=== PATIENT | female | born 1985 | race Caucasian/White ===

== ENCOUNTER 2018-01-23 12:40 | Emergency (ER) | payer OTHER ==
[2018-01-23 12:50] VITALS: TEMP 98.2; BMI 27.3
--- NOTE | 2018-01-23 13:49 | PDOC ---
History of Present Illness - General Chief Complaint: Palpitations Stated Complaint: TACHYCARDIA (PCP SENT) History Source: Patient Exam Limitations: No Limitations - History of Present Illness Initial Comments: 01/23/18 13:25 32 YOF with h/o heart murmur recently diagnosed by echo, distant h/o asthma, and current left tooth pain, who was instructed by her PMD Jenaro Garvin to come into the ED for a 5-10 minute episode of rapid palpitations, SOB, lightheadedness, and mild substernal chest pain, which occurred this morning at 11 am while she was at work but doing nothing particularly stressful or physically demanding. 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 She notes resolution of the symptoms without further intervention, and now feels well. She denies recent f/c/n/v/d/c, LMP was in the past week, no leg swelling/pain, no OCP or hormone use, no recent surgery, but recently had a road trip to and from [place] (about a 4.[address] with vacation inbetween the trips). No family h/o blood clotting disorders, sudden unexplained cardiac in family members, or other symptoms. States she has been eating and drinking well, denies any tobacco, alcohol, or drug use , denies any increase in her stress level lately Past History - Past Medical History Allergies/Adverse Reactions: Allergies Allergy/AdvReac Type Severity Reaction Status Date / Time clindamycin Allergy Verified 01/23/18 12:50 Penicillins Allergy Verified 01/23/18 12:50 shellfish derived Allergy Verified 01/23/18 12:50 Home Medications: Ambulatory Orders NK [No Known Home Medication] 01/23/18 Cardiac Disorders: (MUR MUR) COPD: No - Suicide/Smoking/Psychosocial Hx Smoking History: Never smoked Hx Alcohol Use: No Drug/Substance Use Hx: No Review of Systems - Review of Systems Able to Perform ROS?: Yes Constitutional: No: Chills, Fever, Unexplained wgt Loss HEENTM: No: Nose Congestion, Throat Pain Respiratory: No: Cough, Shortness of Breath Cardiac (ROS): No: Chest Pain, Palpitations ABD/GI: No: Constipated, Diarrhea, Nausea, Vomiting : No: Burning, Dysuria Musculoskeletal: No: Back Pain, Neck Pain Integumentary: No: Bruising, Rash Neurological: No: Headache, Numbness, Tingling, Weakness, Dizziness Endocrine: No: Unexplained Weight Gain, Unexplained Weight Loss *Physical Exam - Vital Signs Last Vital Signs Temp Pulse Resp BP Pulse Ox 98.2 F 83 18 112/75 100 01/23/18 12:47 01/23/18 16:31 01/23/18 16:31 01/23/18 16:31 01/23/18 16:31 - Physical Exam General Appearance: Yes: Nourished, Other (alert, oriented, well appearing adult female in no distress, answers questions appropriately). No: Apparent Distress HEENT: positive: EOMI, YANETH, Normal Voice, Hearing Grossly Normal. negative: Scleral Icterus (R), Scleral Icterus (L), Nasal Congestion Neck: positive: Trachea midline, Supple. negative: Tender, Rigid Respiratory/Chest: positive: Lungs Clear, Decreased Breath Sounds. negative: Respiratory Distress, Crackles, Rhonchi, Stridor, Wheezing Cardiovascular: positive: Regular Rhythm, Regular Rate, S1, S2. negative: Edema , JVD, Murmur Gastrointestinal/Abdominal: positive: Normal Bowel Sounds, Soft. negative: Tender, Organomegaly, Pulsatile Mass, Guarding Musculoskeletal: positive: Normal Inspection. negative: Decreased Range of Motion, Vertebral Tenderness Extremity: positive: Normal Capillary Refill, Normal Inspection, Normal Range of Motion. negative: Tender, Cyanosis Integumentary: positive: Normal Color, Dry, Warm. negative: Erythema, Rash, Bruising Neurologic: positive: city assessor II-XII NML intact, Fully Oriented, Alert, Normal Mood/ Affect, Normal Response, Motor Strength 5/5 Heart Score/ECG Review - History History: Slightly suspicious - Electrocardiogram EKG: Normal - Age Age: </= 45 - Risk Factors Based on the list above the patient has:: No risk factors known - Troponin Troponin: </= normal limit - Score Heart Score - Total: 0 - [place] Comment: Sinus rhythm rate 92 with normal axis and intervals and no ST-T changes ED Treatment Course - LABORATORY CBC & Chemistry Diagram: 01/23/18 14:41 01/23/18 14:41 - ADDITIONAL ORDERS Additional order review: 01/23/18 14:33 Urine Culture - Final Urine - Urine Clean Catch NO GROWTH OBTAINED 01/23/18 14:41 RBC 4.48 MCV 88.6 MCHC 34.2 RDW 12.7 MPV 8.6 Neutrophils % 71.8 Lymphocytes % 21.6 Monocytes % 4.9 Eosinophils % 0.7 Basophils % 1.0 - RADIOLOGY Radiology Studies Ordered: Category Date Time Status CHEST X-RAY PORTABLE* [RAD] Stat Radiology 01/23/18 13:56 Completed - Medications Given in the ED: ED Medications Discontinued Medications Generic Name Dose Route Start Last Admin Trade Name Freq PRN Reason Stop Dose Admin Sodium Chloride 1,000 ml 01/23/18 14:58 01/23/18 15:42 Normal Saline - IV 01/23/18 14:59 1,000 ml ONCE ONE Administration Medical Decision Making - Medical Decision Making Adult Pt p/w chest pain. Initial Vital Signs Temp Pulse Resp BP Pulse Ox 98.2 F 87 18 123/75 98 01/23/18 12:47 01/23/18 12:47 01/23/18 12:47 01/23/18 12:47 01/23/18 12:47 Exam: As noted in Physical Exam section. DDX IBNLT: Arrhythmia (i.e. SVT, AFIB, etc), MVP, ACS, pericarditis, tamponade, aortic dissection, AAA, PTX, PE, esophageal tear, esophagitis (e.g. pill, infectious), esophageal stricture, gastritis, PUD, pancreatitis, cholecystitis, cholangitis, colitis, bowel perforation, PNA/bronchitis, pleurisy, pleuritis, pulmonary HTN, musculoskeletal, panic/anxiety, etc. W/U ordered: CBCD CMP Mg Phos Troponin Coags UA UCx EKG CXR. TX ordered: monitor, O2 via NC if needed Patient rules out with PERC criteria; low c/f PE and D-dimer not indicated. EKG: Reviewed; results as noted in ECG Review section. CXR: Nothing acute. Laboratory Tests 01/23/18 01/23/18 01/23/18 14:33 14:41 14:41 WBC 7.3 RBC 4.48 Hgb 13.6 Hct 39.7 MCV 88.6 MCH 30.3 MCHC 34.2 RDW 12.7 Plt Count 285 MPV 8.6 Absolute Neuts (auto) 5.3 Neutrophils % 71.8 Lymphocytes % 21.6 Monocytes % 4.9 Eosinophils % 0.7 Basophils % 1.0 Nucleated RBC % 0 Sodium 135 L Potassium 3.9 Chloride 108 H Carbon Dioxide 28 Anion Gap -1 L BUN 13 Creatinine 0.6 Creat Clearance w eGFR > 60 Random Glucose 89 Calcium 8.9 Phosphorus 3.9 Magnesium 1.9 Total Bilirubin 0.2 AST 20 ALT 32 Alkaline Phosphatase 50 Troponin I < 0.02 Total Protein 6.9 Albumin 3.7 Urine Color Straw Urine Appearance Clear Urine pH 7.0 Ur Specific [place] 1.008 Urine Protein Negative Urine Glucose (UA) Negative Urine Ketones Negative Urine Blood Negative Urine Nitrite Negative Urine Bilirubin Negative Urine Urobilinogen Negative Ur Leukocyte Esterase Negative Urine HCG, Qual Negative Reassessment: Feels well, repeat exam benign and unchanged. 01/23/18 15:49 Dr. Ramirez spoke with Dr. Garvin; in agreement patient can be discharged with plan to f/u with cardiology. Vital Signs Temperature 98.2 F 01/23/18 12:47 Pulse Rate 83 01/23/18 16:31 Respiratory Rate 18 01/23/18 16:31 Blood Pressure 112/75 01/23/18 16:31 O2 Sat by Pulse Oximetry (%) 100 01/23/18 16:31 No new abnormal rhythms have been observed on the ekg monitor tech. On last reassessment VS are stable, Pts pain is resolved, and exam is benign. The Pts HEART score indicates they are low risk and do not require admission currently. The Pt is appropriate for discharge with close outpatient follow up. Referral info given for Dr. Amato and pt will f/u [facility] (call this afternoon or tomorrow morning). They are comfortable with this plan and will follow up with their PCP in 1-3 days. Specific return precautions are discussed and they will come back to the ER if necessary. *DC/Admit/Observation/Transfer Diagnosis at time of Disposition: Palpitations Chest pain Qualifiers: Chest pain type: unspecified Qualified Code(s): R07.9 - Chest pain, unspecified - Discharge Dispostion Disposition: HOME Condition at time of disposition: Stable Decision to Admit order: No - Referrals Referrals: Jenaro Garvin MD [Primary Care Provider] - Ryan Amato MD [Staff Physician] - - Patient Instructions Printed Discharge Instructions: DI for Palpitations Additional Instructions: You were seen in the ER for palpitations, shortness of breath, and chest pain. We did lab work on your blood and urine, an electrocardiogram, and a chest x-ray , and we did not find any concerning abnormalities. After our assessment, we do not believe you are having a medical emergency at this time, and we believe you are safe to go home. Take over the counter pain medications for your pain, as instructed on the medication label. Please follow up with your regular PCP doctor in 1-3 days, and with our microarray specialist (Dr. Amato, for whom we are giving you referral info in this packet). Call their clinic as soon as possible , tell them you were seen in the ER, and tell them you need an appointment. If you have any new or worsening symptoms, especially worsening chest pain, jaw pain, shoulder/arm pain, shortness of breath, sweats, nausea, loss of consciousness, palpitations, or other symptoms, please come back to the ER at any time (24 hours a day). If you are having severe or life threatening symptoms , or symptoms that make it unsafe to drive or have someone drive you, please call 911. - Post Discharge Activity
--- NOTE | 2018-01-23 14:42 | PDOC ---
Attending Attestation - HPI HPI: 01/23/18 15:00 The patient is a 32 year old female, with a significant PMH of heart murmur, asthma who presents to the emergency department with an episode of palpitations , shortness of breath, lightheadedness and substernal chest pain beginning at 11am this morning. The patient states the episode lasted for approx 5-10 minutes before resolving on its own. 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 The patient states her LMP was last week. She denies any recent leg swelling or pain. Denies any recent surgery. Denies any family history of blood clots. Denies any hormone use or OCP. The patient states she had a recent road trip to [place] via car approx 4.5 hours. Denies fever, chills, nausea, vomit, diarrhea and constipation. Denies dysuria, frequency, urgency and hematuria. Allergies: clindamycin, penicillin, shellfish derived - Physicial Exam PE: 01/23/18 15:01 Vitals: Triage vital signs reviewed General Appearance: No acute distress, well nourished, well developed Head: Atraumatic Eyes: Pupils equal reactive round, extraocular movement intact Ears: TM's normal bilaterally Nose: Nares patent bilaterally; no nasal congestion Throat: Posterior oropharynx without erythema, mucous membranes moist Neck: Supple; No nuchal rigidity Chest Wall: Nontender Cardiac: Regular rate and rhythm, no murmurs, no rubs, no gallops Lungs: Clear to auscultation bilateral, good air movement bilaterally Abdomen: Soft, nondistended, normal bowel sounds, nontender to palpation Rectal: Exam deferred Extremities: Full range of motion to all extremities, no cyanosis, clubbing, or edema Skin: Warm and dry, no rashes or lesions, no rash, no petechiae Neuro: AOX3; Cranial Nerves 2-12 grossly intact, Strength intact to all extremities, Sensation intact to all extremities, gait normal Psych: Normal mood, normal affect - Medical Decision Making 01/23/18 15:01 Patient is a 32 year old female, with a history of heart murmur, asthma, presents to the emergency department with an episode of palpitations, shortness of breath, lightheadedness and substernal chest pain beginning at 11am this morning. 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 We'll check labs Case discussed with patient's primary care provider. Patient has cardiology follow-up on Saturday. Labs thyroid function EKG all within normal limits Findings, the need for follow-up and strict return instructions discussed with patient. <Jose Ramirez - Last Filed: 01/23/18 18:29> Heart Score/ECG Review - ECG Impressions Comment:: 01/23/18 15:32 Normal sinus rhythm EKG performed at 1241 sinus rhythm at 92 beats for minute. No ST elevations or T-wave inversions. No evidence of WPD, [place], prolonged QT. Normal axis. Interpreted by me. <Jose Ramirez - Last Filed: 01/23/18 18:29> Attestations - Attestations 01/23/18 15:01 Documentation prepared by Emmanuel Richardson, acting as medical clerk for Jose Ramirez MD. <Emmanuel Richardson - Last Filed: 01/23/18 15:00>
[2018-01-23 14:57] LABS: EOS % 0.7 % (0-4.5); HEMATOCRIT 39.7 % (32.4-45.2); HEMOGLOBIN 13.6 GM/dL (10.7-15.3); LYMPH % 21.6 % (8-40); MCH 30.3 pg (25.7-33.7); MCHC 34.2 g/dl (32.0-36.0); MEAN CELL VOLUME 88.6 fl (80-96); MEAN PLT VOLUME 8.6 fl (7.5-11.1); MONO % 4.9 % (3.8-10.2); NEUT % 71.8 % (42.8-82.8); PLATELET COUNT 285 K/MM3 (134-434); RBC 4.48 M/mm3 (3.60-5.2); RDW 12.7 % (11.6-15.6); WHITE BLOOD COUNT 7.3 K/mm3 (4.0-10.0)
[2018-01-23] MEDS ORDERED: SODIUM CHLORIDE 0.9% 1000 ML INFUS.BAG IV ONE (14:58)
[2018-01-23 15:05] LABS: URINE APPEARANCE CLEAR; URINE BILIRUBIN NEGATIVE (<2.0 mg/dL); URINE COLOR STRAW; URINE GLUCOSE (UA) NEGATIVE (NEGATIVE); URINE KETONE NEGATIVE (NEGATIVE); URINE LEUK ESTERASE NEGATIVE (NEGATIVE); URINE NITRITE NEGATIVE (NEGATIVE); URINE PROTEIN NEGATIVE (NEGATIVE); URINE UROBILINOGEN NEGATIVE mg/dL (0.2-1.0)
[2018-01-23 15:06] LABS: HCG,QUALITATIVE URINE Negative
[2018-01-23 15:21] LABS: ALBUMIN 3.7 g/dl (3.4-5.0); ANION GAP -1 MMOL/L (8-16); BILIRUBIN,TOTAL 0.2 mg/dL (0.2-1.0); BLOOD UREA NITROGEN 13 mg/dL (7-18); CALCIUM 8.9 mg/dL (8.5-10.1); CHLORIDE 108 mmol/L (98-107); CO2 28 mmol/L (21-32); CREATININE 0.6 mg/dL (0.55-1.02); GLUCOSE,RANDOM 89 mg/dL (74-106); MAGNESIUM 1.9 mg/dL (1.8-2.4); PHOSPHOROUS 3.9 mg/dL (2.5-4.9); POTASSIUM 3.9 mmol/L (3.5-5.1); SGOT/AST 20 U/L (15-37); SGPT/ALT 32 U/L (12-78); SODIUM 135 mmol/L (136-145); TOT PROT 6.9 g/dl (6.4-8.2)
[2018-01-23 15:24] LABS: ALK PHOS 50 U/L (45-117)
[2018-01-23 16:32] VITALS: BP 112/75; PULSE 83
--- NOTE | 2018-01-27 14:12 | EKG ---
Test Reason : Blood Pressure : / mmHG Vent. Rate : 092 BPM Atrial Rate : 092 BPM P-R Int : 136 ms QRS Dur : 088 ms QT Int : 356 ms P-R-T Axes : 067 065 046 degrees QTc Int : 440 ms NORMAL SINUS RHYTHM NORMAL ECG NO PREVIOUS ECGS AVAILABLE Confirmed by ARUNA MARIE MD ([id number]) on 01/27/2018 2:11:58 PM Referred By: Confirmed By:ARUNA MARIE MD
== END 2018-01-23 16:33 | disposition home or self-care (01) ==
LOC: JER 12:40
DX: R00.2 Palpitations (principal); R01.1 Cardiac murmur, unspecified
CPT/HCPCS: 36415; 71045-TC-FY; 80053; 81003; 83735; 84100; 84443; 84484; 84703; 85025; 87086; 93005; 93010; 99284-25; J7030